=== PATIENT | male | born 1980 | race Caucasian/White ===

== ENCOUNTER 2017-01-04 01:24 | Emergency (ER) | payer MEDICAID ==
[~2017-01-04] VITALS: Ht 167.6 cm; Wt 75.3 kg
--- NOTE | 2017-01-04 01:24 | NUR ---
BIB [facility] TO ER BED 4
[2017-01-04 01:26] VITALS: BP 137/82
--- NOTE | 2017-01-04 01:30 | NUR ---
Patient being evaluated by DR. DONIS at bedside.
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
[2017-01-04 02:22] VITALS: BP 137/82
--- NOTE | 2017-01-04 02:22 | NUR ---
Patient discharged with v/s stable. Written and verbal after care instructions given and explained. Patient verbalized understanding. Ambulatory with steady gait. All questions addressed prior to discharge. Advised to follow up with PMD. P CUSTODY
--- NOTE | 2017-01-04 02:22 | NUR ---
PATIENT BIB [facility] POLICE DEPT. PATIENT EXAMINED BY DR. DONIS. PATIENT MEDICALLY CLEARED AND RELEASED IN CUSTODY IN STABLE CONDITION. ORIGINAL PRE-BOOK FORM GIVEN TO OFFICER ANGY.
== END 2017-01-04 02:22 ==
LOC: MED 01:24
DX: Z02.89 Encounter for other administrative examinations (principal); S60.112A Contusion of left thumb with damage to nail, initial encounter; R03.0 Elevated blood-pressure reading, without diagnosis of hypertension; V49.49XA Driver injured in collision with other motor vehicles in traffic accident, initial encounter; Y93.89 Activity, other specified; Y92.89 Other specified places as the place of occurrence of the external cause; Y99.8 Other external cause status
CPT/HCPCS: 11740; 73130; 90471; 90715; 99284; Q0092